=== PATIENT | female | born 1960 | race Caucasian/White ===

== ENCOUNTER 2021-02-08 01:55 | Emergency (ER) | payer OTHER, SELFPAY ==
[2021-02-08] VITALS (9 sets, daily range): BP systolic 108–133; BP diastolic 61–74; PULSE 58–69; RESP 12–20; TEMP 36.7; O2SAT 95–100
--- NOTE | 2021-02-08 02:09 | DI.RAD.S_ITS ---
PROCEDURE: XR SHOULDER LT MIN 2V INDICATIONS: fall TECHNIQUE: 2 views of the shoulder were acquired. COMPARISON: [facility], CR, XR HAND LT MIN 3V, 02/08/2021, 3:02. [facility], CR, XR CHEST 1V, 02/08/2021, 2:48. [facility], CR, XR HIP W PEL IF DONE LT 2V, 02/08/2021, 2:48. [facility], CT, CT CERVICAL SPINE WO CON, 02/08/2021, 2:31. [facility], CT, CT HEAD/BRAIN WO CON, 02/08/2021, 2:31. [facility], CR, XR CERVICAL SPINE 2 OR 3 VIEWS, 02/02/2021, 19:40. [facility], CT, CT HEAD WITHOUT CONTRAST, 02/02/2021, 17:45. FINDINGS: Clothing artifact is seen. Bones: No fractures or dislocations. No suspicious bony lesions. Visualized ribs appear intact. Soft tissues: No suspicious soft tissue calcifications. The visualized lung demonstrates an unremarkable appearance. IMPRESSION: No fracture or dislocation can be seen. Note: No significant discrepancy from the preliminary report. Dictated by: Luc Vincent M.D. on 02/08/2021 at 8:20 Approved by: Luc Vincent M.D. on 02/08/2021 at 8:22
--- NOTE | 2021-02-08 02:09 | DI.CT.S_ITS ---
PROCEDURE: CT CERVICAL SPINE WO CON INDICATIONS: Trauma, fall TECHNIQUE: Noncontrast 3 mm thick sections acquired from the skull base to the T4 level. Sagittal and coronal reformats were then constructed. For radiation dose reduction, the following was used: automated exposure control, adjustment of mA and/or kV according to patient size. COMPARISON: None. FINDINGS: Image quality: Excellent. Bones: No fractures or dislocations. Visualized superior ribs are intact. Soft tissues: Prevertebral soft tissues are normal in thickness. No paravertebral hematomas. IMPRESSION: No CT evidence of acute traumatic cervical spine injury. No significant change from preliminary report. Dictated by: Harris Martinez M.D. on 02/08/2021 at 8:03 Approved by: Harris Martinez M.D. on 02/08/2021 at 8:04
--- NOTE | 2021-02-08 02:09 | DI.CT.S_ITS ---
PROCEDURE: CT HEAD/BRAIN WO CON INDICATIONS: Trauma, fall TECHNIQUE: Noncontrast 4.5 mm thick angled axial sections acquired from the foramen magnum to the vertex, with coronal and sagittal reformats. For radiation dose reduction, the following was used: automated exposure control, adjustment of mA and/or kV according to patient size. COMPARISON: None. FINDINGS: Image quality: Excellent. CSF spaces: Basal cisterns are patent. No extra-axial fluid collections. Ventricles are normal in size and shape. Brain: No midline shift. No intracranial masses or hemorrhage. Jones-white matter interface is normal. Skull and face: Calvarium and visualized facial bones are intact, without suspicious lesions. Sinuses: Mild inflammatory changes in the ethmoid air cells and right maxillary sinus, status post right maxillary sinus medial antrostomy. IMPRESSION: No acute intracranial abnormality. Dictated by: Harris Martinez M.D. on 02/08/2021 at 8:02 Approved by: Harris Martinez M.D. on 02/08/2021 at 8:02
--- NOTE | 2021-02-08 02:09 | DI.RAD.S_ITS ---
PROCEDURE: XR HIP W PEL IF DONE LT 2V INDICATIONS: fall TECHNIQUE: AP pelvis with lateral view(s) of the left hip(s). COMPARISON: [facility], CR, XR HAND LT MIN 3V, 02/08/2021, 3:02. [facility], CR, XR SHOULDER LT MIN 2V, 02/08/2021, 2:48. [facility], CR, XR CHEST 1V, 02/08/2021, 2:48. [facility], CT, CT CERVICAL SPINE WO CON, 02/08/2021, 2:31. [facility], CT, CT HEAD/BRAIN WO CON, 02/08/2021, 2:31. [facility], CR, XR CERVICAL SPINE 2 OR 3 VIEWS, 02/02/2021, 19:40. [facility], CT, CT HEAD WITHOUT CONTRAST, 02/02/2021, 17:45. FINDINGS: Bones: No fractures or dislocations. Pelvic ring appears intact. No suspicious bony lesions. Right hip arthroplasty hardware is seen, and appears intact. Soft tissues: The visualized bowel gas pattern is normal. No suspicious soft tissue calcifications. IMPRESSION: Negative for fracture or dislocation. Note: No significant discrepancy from the preliminary report. Dictated by: Luc Vincent M.D. on 02/08/2021 at 8:22 Approved by: Luc Vincent M.D. on 02/08/2021 at 8:23
--- NOTE | 2021-02-08 02:09 | DI.RAD.S_ITS ---
PROCEDURE: XR CHEST 1V INDICATIONS: Fall TECHNIQUE: One view of the chest was acquired. COMPARISON: None. FINDINGS: Clothing artifact is noted. Surgical changes and devices: None. Lungs and pleura: Lungs are clear. No pleural effusions or pneumothorax. Mediastinum: Mediastinal contours appear normal. Heart size is normal. Bones and chest wall: No suspicious bony lesions. No displaced rib fracture can be seen. Overlying soft tissues appear unremarkable. IMPRESSION: No acute abnormality is seen on this supine portable chest study. Note: No significant discrepancy from the preliminary report. Dictated by: Luc Vincent M.D. on 02/08/2021 at 8:28 Approved by: Luc Vincent M.D. on 02/08/2021 at 8:28
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
[2021-02-08] MEDS: MORPHINE 4 MG/ML INJ IV (02:23)
--- NOTE | 2021-02-08 03:01 | DI.RAD.S_ITS ---
PROCEDURE: XR HAND LT MIN 3V INDICATIONS: Fall TECHNIQUE: 3 views of the hand(s) acquired. COMPARISON: [facility], CR, XR CHEST 1V, 02/08/2021, 2:48. [facility], CR, XR SHOULDER LT MIN 2V, 02/08/2021, 2:48. [facility], CR, XR HIP W PEL IF DONE LT 2V, 02/08/2021, 2:48. [facility], CT, CT CERVICAL SPINE WO CON, 02/08/2021, 2:31. [facility], CT, CT HEAD/BRAIN WO CON, 02/08/2021, 2:31. [facility], CR, XR CERVICAL SPINE 2 OR 3 VIEWS, 02/02/2021, 19:40. [facility], CT, CT HEAD WITHOUT CONTRAST, 02/02/2021, 17:45. FINDINGS: Bones: No fractures or dislocations. Carpal bones are normally aligned. No suspicious bony lesions. Degenerative changes are seen throughout, which are most prominent involving the 1st carpometacarpal joint. Milder degenerative changes are seen elsewhere. Soft tissues: No suspicious soft tissue calcifications. IMPRESSION: No displaced fractures are seen. There are underlying, age-appropriate degenerative changes seen, which are worst within the 1st carpometacarpal joint. Note: No significant discrepancy from the preliminary report. Dictated by: Luc Vincent M.D. on 02/08/2021 at 8:23 Approved by: Luc Vincent M.D. on 02/08/2021 at 8:23
[2021-02-08 03:31] LABS: Add Manual Diff / Slide Review NO; Basophils Absolute Auto 0 /uL (0-100); Basophils Percent Auto 0.8 % (0-2); Eosinophils Absolute Auto 100 /uL (0-450); Eosinophils Percent Auto 2.4 % (2-4); Hematocrit 40.6 % (36-46); Hemoglobin 13.4 g/dL (12.0-16.0); Lymphocytes Absolute Auto 1800 /uL (1100-4500); Lymphocytes Percent Auto 60.2 % (25-40); Mean Corpuscular HGB Conc 33.1 % (30-36); Mean Corpuscular Hemoglobin 30.6 PG (26-34); Mean Corpuscular Volume 92.4 fL (80-100); Monocytes Absolute Auto 200 /uL (0-900); Monocytes Percent Auto 7.2 % (3-14); Neutrophils Absolute Auto 900 /uL (1500-7000); Neutrophils Percent Auto 29.4 % (50-75); Platelet Count 149 X10^3/uL (150-400); Prothrombin Time 11.2 SECONDS (10.1-12.7); Red Blood Cell Count 4.39 X10^6/uL (4.0-5.2); Red Cell Distribution Width 13.7 % (11.6-14.8); White Blood Cell Count 3.1 X10^3/uL (4.5-11.0)
[2021-02-08 03:34] LABS: Creatine Kinase 113 U/L (30-135)
[2021-02-08 03:36] LABS: Alanine Aminotransferase 16 IU/L (<35); Albumin 4.3 g/dL (3.5-5.0); Albumin Globulin Ratio 1.5 (1.0-2.8); Alkaline Phosphatase 105 U/L (38-126); Aspartate Aminotransferase 44 IU/L (14-36); BUN Creatinine Ratio 13.1 (6-22); Bilirubin Total 0.3 mg/dL (0.2-1.3); Blood Urea Nitrogen 8 mg/dL (7-17); Calcium 9.6 mg/dL (8.4-10.2); Carbon Dioxide 31 mmol/L (22-32); Chloride 104 mmol/L (98-107); Estimated Glomerular Filt Rate > 60.0 mL/min (>60); Globulin 2.8 g/dL (1.7-4.1); Glucose 89 mg/dL (70-100); HEMOLYSIS < 15 (0-50); Lipase 161 U/L (23-300); Potassium 3.8 mmol/L (3.4-5.1); Sodium 140 mmol/L (137-145); Total Protein 7.1 g/dL (6.3-8.2)
[2021-02-08 03:46] LABS: PTT Partial Thromboplastin Tim 33 SECONDS (26.4-36.2)
[2021-02-08] MEDS: HYDROMORPHONE 1 MG INJ IV (04:17)
[2021-02-08 04:52] LABS: Ethanol (ETOH) < 10 mg/dL
[2021-02-08] MEDS: KETOROLAC 30 MG/ML VIAL 15 MG IV (05:27)
== END 2021-02-08 05:45 | disposition home or self-care (01) ==
PROVIDERS: Emergency Provider Emergency Medicine
DX: S00.03XA Contusion of scalp, initial encounter (principal); S16.1XXA Strain of muscle, fascia and tendon at neck level, initial encounter; T14.8XXA Other injury of unspecified body region, initial encounter; G50.0 Trigeminal neuralgia; M54.2 Cervicalgia; M25.512 Pain in left shoulder; M25.552 Pain in left hip; W10.9XXA Fall (on) (from) unspecified stairs and steps, initial encounter
CPT/HCPCS: 36415; 70450; 71045; 72125; 73030; 73130; 73502; 80053; 80320; 82550; 83690; 85025; 85610; 85730; 86850; 86900; 86901; 96374; 96375; 99285; J1170; J1885; J2270

== ENCOUNTER → 2021-05-18 16:55 | Outpatient (CLI) | payer OTHER, SELFPAY ==
[2021-05-18 17:05] LABS: Bacteria Urine None Seen; RBC Urine None Seen (0-5/HPF); WBC Urine None Seen (0-5/HPF)
[2021-05-18 17:30] LABS: Appearance Urine UA CLEAR; Bilirubin Urine UA NEGATIVE (NEGATIVE); Color Urine UA YELLOW; Glucose Urine UA NEGATIVE (Negative); Ketones Urine UA NEGATIVE (NEGATIVE); Leukocyte Esterase Urine UA NEGATIVE (NEGATIVE); Nitrite Urine UA NEGATIVE (Negative); Occult Blood Urine UA NEGATIVE (Negative); Protein Urine UA NEGATIVE (Negative); Specific Gravity Urine UA <=1.005 (1.000-1.035); Urobilinogen Urine UA 0.2 E.U./dL (0.2)
[2021-05-18 17:32] LABS: pH Urine UA 6.5 (4.5-8.0)
[2021-05-18 17:50] LABS: Culture Indicated Urine Cult Not Indicated
== END ==
PROVIDERS: PCP Family Medicine; Referring Provider Family Medicine; Visit Provider Family Medicine
DX: N39.0 Urinary tract infection, site not specified (principal)
CPT/HCPCS: 81001

== ENCOUNTER → 2021-09-15 10:09 | Outpatient (CLI) | payer OTHER, SELFPAY ==
--- NOTE | 2021-09-15 | DI.MRI.S_ITS ---
PROCEDURE: MR HEAD/BRAIN WO/W CON INDICATIONS: Headache, unspecified TECHNIQUE: Noncontrast axial T1 spin echo, axial T2 fast spin echo, sagittal and axial FLAIR, coronal T2 fast spin echo, axial gradient echo, axial diffusion and ADC through the brain. After the administration of contrast, axial and coronal 3D VIBE or T1 spin echo with fat saturation through the brain. COMPARISON: None. FINDINGS: Image quality: Excellent. CSF Spaces: Basal cisterns are patent. No extra-axial fluid collections. Ventricles are normal in size and shape. Brain: No midline shift. No intracranial bleeds or masses. No abnormal intracranial enhancement. The brainstem appears normal. Diffusion-weighted images demonstrate no acute ischemic insults. No chronic ischemia sequelae. Normal intravascular flow voids are present. Skull and face: Calvarial marrow is normal in signal. Orbits appear normal. Sinuses: Sinuses and mastoids appear clear. IMPRESSION: Unremarkable MRI of the brain with without contrast Dictated by: Star Williamson M.D. on 09/15/2021 at 16:27 Approved by: Star Williamson M.D. on 09/15/2021 at 16:35
== END ==
PROVIDERS: PCP Family Medicine; Referring Provider Internal Medicine; Visit Provider Internal Medicine
DX: R51.9 Headache, unspecified (principal); G89.29 Other chronic pain
CPT/HCPCS: 70553; A9579

== ENCOUNTER → 2022-07-22 12:51 | Outpatient (CLI) | payer OTHER, SELFPAY ==
--- NOTE | 2022-07-22 12:52 | DI.US.S_ITS ---
PROCEDURE: US THYROID INDICATIONS: THYROID NODULE TECHNIQUE: Real-time scanning was performed of the thyroid gland, with image documentation. COMPARISON: None. FINDINGS: Right: Thyroid lobe measures 5.0 x 1.5 x 1.4 cm, and is homogeneous in echotexture. Left: Thyroid lobe measures 4.1 x 1.1 x 0.9 cm, and is homogenous in echotexture. Isthmus: 1.2 mm thick. Nodule number: 1 Location: Right mid lobe Size: 2.1 x 1.1 x 0.9 cm. Composition: Mixed solid and cystic Echogenicity: Isoechoic Shape: wider than tall. Margins: Smooth Echogenic foci: Punctate Total points: 4 ACR TI-RADS category: 4 IMPRESSION: Category 4 nodule. Secondary to size, FNA is recommended. ACR TI-RADS definitions and recommendations: TI-RADS 1 (benign): 0 points. FNA not needed. TI-RADS 2 (not suspicious): 2 points. FNA not needed. TI-RADS 3 (mildly suspicious): 3 points. * FNA if 2.5 cm or larger, follow up if 1.5 cm or larger (at 1, 3, and 5 years). TI-RADS 4 (moderately suspicious): 4-6 points. * FNA if 1.5 cm or larger, follow up if 1 cm or larger (at 1, 2, 3, and 5 years). TI-RADS 5 (highly suspicious): 7 points or more. * FNA if 1 cm or larger, follow up if 0.5 cm or larger (every year for 5 years). Dictated by: Carola Olmedo M.D. on 07/22/2022 at 17:22 Approved by: Carola Olmedo M.D. on 07/22/2022 at 17:23
== END ==
PROVIDERS: PCP Family Medicine; Referring Provider Internal Medicine; Visit Provider Internal Medicine
DX: E04.1 Nontoxic single thyroid nodule (principal)
CPT/HCPCS: 76536

== ENCOUNTER 2022-11-24 14:30 | Outpatient (RCR) | payer OTHER, SELFPAY ==
--- NOTE | 2022-11-18 17:07 | ST.OPIE ---
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 Cordon, ENT PCP is Diamond Mondragon MD Reason for Referral dysphonia ; vocal fold paresis Setting Setting Outpatient Care Patient History Patient History Pt was seen for vocal therapy at the referral of Dr. Cordon, ENT. 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 Pt reports she has no voice and is experiencing difficulty with volitional swallowing as well as frequently choking on liquids . Dr Cordon indicated in his report that he discussed temporary vocal fold injection on the right to help with pt' s voice and swallow. Pt's medical history is complicated and included right side trigeminal neuralgia with rizotomy intervention x2, gastroparesis, frequent emisis , weight loss, hip replacement surgery, and repeated falls resulting in concussion. Pt reported that on 09/15/22, she tripped and hit her head on the bumper of the car and then landed on the back of her head,resulting in a loss of consciousnesses. She was taken by ambulance to the hospital, trached and placed in an induced coma for several days. She reports she continues to experience foggy brain, reports she is half not there as well as dizziness. She has not seen a neurologist, per her report. She also does not have a local GI specialist. Hearing Auditory History Appeared WFL Previous Therapy Previous Speech-Language Therapy No Oral Motor Assessment Source: [employer] ([employer]). Oral-Motor Assessment Informal OME/DKS observation indicated structures and function to be WNL Subjective Subjective Pt appeared very thin. She was using a crutch to assist in walking. Pt's initial vocal quality was a glottal ojeda, quickly deteriorating to aphonia. - Laryngeal Performance S/Z Ratio S/Z Ratio Unable to assess due to aphonia Functional for Speech No Reduced Laryngeal Function Relative to Yes Respiration CAPE-V Overall Severity 88 Roughness 15 Breathiness 88 Strain 0 Pitch 0 Loudness 100 Normal Resonance? Unable to assess due to aphonia Additional Features Aphonia Maximum Phonation Time MPT Norms: Women (15-25) Men (25-35) Loudness (50-60 dB); Speaking Rate: Oral Reading of Sentences (190 Words Per Minute); Oral Reading of Paragraphs (160-170 WPM); Speaking Rate in Conversation (150-250 WPM) Maximum Phonation Time Pt was unable to perform Pitch Benld Pitch Benld Comments Pt was unable to perform Muscle Tension Assessment Muscle Tension Assessment Jaw,Neck Muscle Tension Assessment Comments muscle tension due to excessive effort to speak without voice Breath Support Breath Support At Rest Comments Pt c/o quickly losing strenth and endurance for speaking and SOB Breath Support Sustained Phonation Unable to assess due to Comment aphonia Breath Support Conversation Comment minimal Speaks on Room Air Yes Voice Pitch Range Norms: Women (100-300 Hz) Men (70-250 Hz) Fundamental Frequency Norms: Women (Mean: 225 Hz; Range: 155-334 Hz) Men ( Mean: 128 Hz; Range: 85-196 Hz) Voice Loudness Severely Soft/Quiet Voice Phonatory-based Quality Breathy Fundamental Frequency Unable to assess due to aphonia Paradoxical Vocal Fold Movement No Indications Findings Findings Severe Impairment Voice/Resonance Assessment Assessment Pt presented with aphonia secondary to right vocal fold paresis. Pt also demonstrated dysphagia with frequent choking complicated by gastroparesis which causes frequent emisis. Pt was unable to swallow small sips of water, resulting in choking x2. Pt indicated that she us having significant difficulty consuming enough nutrition/ hydration due to frequent emisis and/or choking/high aspiration risk Prognosis Rehabilitation Potential Good - Recommendations Treatment Recommended Yes Treatment Frequency/Duration weekly Therapy Recommendations For increased swallow safety and vocal production, temporary injection in the right VF to augment adduction is recommended. This will assist pt in producing adequate adduction for voice and swallow safety and allow for therapeutic POC. Voice and swallow therapy are recommended to increase vocal fold strength and endurance for safe swallow and increased VF adduction for voicing. A MBS is also recommended in the near future (following VF augmentation) to determine safety for swallowing. Short Term Goals Pt will return to Dr Cordon for temporary VF injection to improve airway protection for safe swallowing and voicing ( VF adduction) Pt will be referred to neurologist for assessment following TBI/concussion symptom assessment Pt will be referred to GI specialist re: gastroparesis management and inadequate nutrition Pt will receive pt education: VF anatomy physiology, as well as understand vocal fold adduction and adduction exercises to increase strength and ROM for improved voicing and swallow safety. Referrals Referrals GI,Neurology Patient/Caregiver Education Patient/Family Education Described results of evaluation,Patient Understanding,Patient Needs More Info,Family Needs More Info
--- NOTE | 2022-11-24 16:44 | ST.OPTN ---
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 Cordon, ENT. 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 Pt reports she has no voice and is experiencing difficulty with volitional swallowing as well as frequently choking on liquids . Dr Cordon indicated in his report that he discussed temporary vocal fold injection on the right to help with pt' s voice and swallow. Pt's medical history is complicated and included right side trigeminal neuralgia with rizotomy intervention x2, gastroparesis, frequent emisis , weight loss, hip replacement surgery, and repeated falls resulting in concussion. Pt reported that on 09/15/22, she tripped and hit her head on the bumper of the car and then landed on the back of her head,resulting in a loss of consciousnesses. She was taken by ambulance to the hospital, trached and placed in an induced coma for several days. She reports she continues to experience foggy brain, reports she is half not there as well as dizziness. She has not seen a neurologist, per her report. She also does not have a local GI specialist. [ End ] Subjective Identification Type Name,Date of Observations/Patient Presentation Pt was walking with a crutch as her hip was still hurting. Pt came to treatment session and noted that Dr. Cordon's office had called to schedule her for VF injection. Pt was confused thinking it was for Botox, so she declined ast the time. i called Dr. Cordon's office to clarify that a fill was recommended, not Botox. Left a message with his office to call tomorrow with clarification. I will call the pt afterward. 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 [ End ] Treatment Activities Introduced vocal adduction exercises with demonstration and pt imitation of same. Pt was provided written instructions for VF adduction exercises. Pt indicated she understood the exercise and frequency (10-20 repetitions), completing them 3-5x daily. Described pt's POC to start with VF fill to improve adduction of PO intake without risk for aspiration. VF fill is expected to improve vocal quality as well. Additionally , pt should see a neurologist for assessment following TBI concussion this pas September. 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 She thinks that she will be needing surgery on her hip and will likely stay in [place] to recover.Encouraged pt to continue her VF exercises daily while she is in [place]. Therapy is on hold pending what she learns from her orthopedist and follow up plans. Reviewed with Patient Goals,Home Exercise Program Patient/Caregiver Understanding Good Plan Comment POC on hold pending pt need for hip surgery ot not Length of Session 60 Minutes Therapeutic Contents Cognitive-Linguistic Training, Swallowing/Feeding,Voice Training Comment POC on hold pending pt need for hip surgery ot not
--- NOTE | 2023-02-09 15:48 | ST.OPDS ---
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 Cordon, ENT. 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 Pt reports she has no voice and is eperiencing difficulty with volitional swallowing as well as frequently choking on liquids . Dr Cordon indicated in his report that he discussed temporary vocal fold injection on the right to help with pt' s voice and swallow. Pt's medical history is complicated and included right side trigeminal neuralgia with rizotomy intervention x2, gastroparesis, frequent emisis , weight loss, hip replacement surgery, and repeated falls resulting in concussion. Pt reported that on 09/15/22, she tripped and hit her head on the bumper of the car and then landed on the back of her head,reuslting in a loss of consciuosness. She was taken by ambulance to the hospital, trached and placed in an induced coma for several days. She reports she continues to experience foggy brain, reports she is half not there as well as dizziness. She has not seen a neurologist, per her report. She also does not have a local GI specialist. [ End ] Subjective Chief Complaint(s) Swallowing,Cognitive,Voice Objective Treatment Activities Pt has not been seen for therapy for 3 months as she was in [place]. She has notified this clinic that her voice is back to nearly 100%. She is requesting treatment for TBI, but will need a new referral from her PCP. Due to staffing shortage at , suggested that she get a new referral from her PCP, get put on waitlist here at or contact [facility] ST dept or at [facility]. Will discharge from as have not seen pt since Assessment Reviewed with Patient Goals,Home Exercise Program Plan Amount of Therapy Recommended No Further Therapy Frequency of Treatment No Further Therapy Therapy Recommendations Discharge from Speech Therapy
== END 2023-02-11 14:44 | disposition home or self-care (01) ==
LOC: SP 14:30
PROVIDERS: Family Provider Internal Medicine; PCP Internal Medicine; Referring Provider Specialist; Visit Provider Specialist
DX: J38.01 Paralysis of vocal cords and larynx, unilateral (principal)
CPT/HCPCS: 92507; 92524

== ENCOUNTER → 2025-01-18 12:26 | Outpatient (CLI) | payer OTHER, SELFPAY ==
--- NOTE | 2025-01-18 12:27 | DI.ECHO.S_ITS ---
[facility] +---------+ [facility] : : [address] : : [place] : : [address] : : Phone: [phone] Echocardiogram Report + + :Name: FRANKLIN LAUREANO Study Date: 01/18/2025 Height: 65 in : :Hospital ReadingLocation: Weight: 95 lb : : Gender: Female BSA: 1.4 m2 : :: 1960 Age: 64 yrs BP: 149/85 mmHg: :Reason For Study: CHRONIC PAIN, MULTIPLE MEDS, HX OF CARDIAC : :CONCERNS : :Ordering Physician: : :JEANNE PERRY Performed By: Harris Brizuela : :Referring: JEANNE PERRY : + + Interpretation Summary Technically difficult study with breast implants precluding adequate imaging. Normal biventricular size and systolic function. LVEF is 75-80% Normal atrial sizes. No signifivant valvular pathology is visualized on limited views. Other findins as below. No previous echo images are available for comparison. Procedure: A two-dimensional transthoracic echocardiogram with color flow and Doppler was performed in limited views only. The study quality was technically difficult. The study quality was technically limited. There is no prior echocardiogram noted for this patient. The patient was in normal sinus rhythm during the exam. Left Ventricle: The left ventricle is normal in size and wall thickness. There is no ventricular septal defect visualized. The ejection fraction is estimated to be 75-80%. Right Ventricle: The right ventricle is normal in size, thickness and function. The right ventricular systolic function is normal. Atria: The left atrial size is normal. The right atrium is normal in size. There is no Doppler evidence for an interatrial shunt. Mitral Valve: The mitral valve leaflets appear normal. There is no evidence of stenosis, fluttering, or prolapse. Aortic Valve: The aortic valve is normal in structure and function. Tricuspid Valve: The tricuspid valve is not well visualized, but is grossly normal. Pulmonic Valve: The pulmonic valve is not well visualized. Great Vessels: The aortic root is normal size. The ascending aorta could not be visualized. The pulmonary is not well visualized. The IVC is dilated (diameter is greater than 2.1 cm) yet it collapses greater than 50% with a sniff. This suggests a right atrial pressure of 8 mm Hg. Pericardium/ Pleura There is no pericardial effusion. There is no pleural effusion. MMode/2D Measurements & Calculations LVIDd: 3.8 cm LVOT diam: 1.8 cm LVIDs: 2.0 cm Ao root diam: 2.8 cm FS: 47.4 % EPSS: 0.35 cm IVSd: 0.71 cm LVPWd: 0.61 cm LV carmichael. diameter/BSA (cm/m^2): 2.6 LV sys. diameter/BSA (cm/m^2): 1.4 IVC diam: 2.0 cm Reading Physician:02:14 PM
== END ==
PROVIDERS: Family Provider Internal Medicine; PCP Family Medicine; Referring Provider Family Medicine; Visit Provider Family Medicine
DX: Z13.6 Encounter for screening for cardiovascular disorders (principal); Z98.82 Breast implant status
CPT/HCPCS: 93307

== ENCOUNTER → 2025-07-25 15:20 | Outpatient (CLI) | payer OTHER, SELFPAY ==
[2025-07-25 16:55] LABS: Free T3, Triiodothyronine Free 3.62 pg/mL (2.77-5.27)
[2025-07-25 17:09] LABS: TSH w/ Reflex to FT4 < 0.02 uIU/mL (0.47-4.68)
[2025-07-25 18:28] LABS: Free T4, Direct Thyroxine 1.17 ng/dL (0.78-2.19)
== END ==
PROVIDERS: Family Provider Internal Medicine; PCP Family Medicine; Referring Provider Family Medicine; Visit Provider Family Medicine
DX: Z98.890 Other specified postprocedural states (principal); Z90.89 Acquired absence of other organs
CPT/HCPCS: 36415; 84439; 84443; 84481